=== PATIENT | male | born 1960 | race Caucasian/White ===

== ENCOUNTER → 2017-09-30 | Outpatient (CLI) | payer OTHER ==
[~2017-09-30] MED LIST: FOCUS FACTOR PO; HYDROCODON-ACE1 EA12 PO; NIACIN500 M2 PO; Z.0.BYSTOLIC5 MG PO; Z.0.CITALOPRAM HBR20 PO; Z.0.NEXIUM40 MG PO; Z.0.TAMSULOSIN HCL0. PO; Z.0.TERBINAFINE HC25 PO; [UNRECOGNIZED DRUG - OTHER] PO
--- NOTE | 2017-09-30 18:03 | Diagnostic Imaging Report ---
PROCEDURE:US RETROPERITONEAL ( KIDNEY ). COMPARISON:MR, MRI SPINE LUMBAR WO, 07/05/2016, 10:00. Patients [facility], CT, CT ABDOMEN/PELVIS WOW, 10/10/2013, 11:45. Patients [facility], US, US ABDOMEN COMPLETE, 11/29/2014, 18:23. INDICATIONS:HEMATURIA TECHNIQUE: Lentz-scale and color sonographic images of the bilateral kidneys and bladder where obtained in transverse and longitudinal planes. FINDINGS: RIGHT KIDNEY: 12.5 cm, cortex 1.9 cm Cysts: 2.5 x 2.1 x 1.6 cm partially exophytic hypoechoic lesion in the superior pole. Solid masses: None Stones: None Hydronephrosis: None Echogenicity: Normal LEFT KIDNEY: 12.7 cm, cortex 2.2 cm Cysts: None Solid masses: None Stones: None Hydronephrosis: None Echogenicity: Normal Bladder: No focal lesions. Bilateral ureteral jets are identified. Prostate: 3.7 x 2.3 x 4.4 cm (estimated volume 19.4 mL). CONCLUSION: 1. Normal bilateral renal size and echogenicity. No hydronephrosis or stones. 2. 2.5 cm partially exophytic hypoechoic lesion in the superior pole, which was not seen on prior abdominal ultrasound or CT abdomen and pelvis, and does not have features of simple cyst. This lesion remains indeterminate and can be further assessed with CT abdomen and pelvis renal mass protocol.. Neto Reina M.D. Dictated by: Neto Reina M.D. on 09/30/2017 at 18:11 Electronically approved by: Neto Reina M.D. on 09/30/2017 at 18:11
--- NOTE | 2017-09-30 18:04 | Diagnostic Imaging Report ---
PROCEDURE:X-RAY ABDOMEN - KUB COMPARISON:[facility], CT, CT ABDOMEN/PELVIS WOW, 10/10/2013, 11:45. INDICATIONS:ASYMPTOMATIC MICROSCOPIC HEMATURIA FINDINGS: There is a non-obstructed bowel-gas pattern. There are no calcifications projected over the renal shadows, expected course of the ureters or bladder. There are no acute osseous abnormalities. CONCLUSION: No calcifications project over the genitourinary system. Neto Reina M.D. Dictated by: Neto Reina M.D. on 09/30/2017 at 18:12 Electronically approved by: Neto Reina M.D. on 09/30/2017 at 18:12
== END ==
LOC: US 13:52
PROVIDERS: ATTEND Urology
DX: R31.9 Hematuria, unspecified (principal)
CPT/HCPCS: 74000; 76770

== ENCOUNTER → 2017-11-14 | Outpatient (CLI) | payer OTHER ==
[~2017-11-14] MED LIST changes: +IOPAMIDOL 370 MG/ML 200 ML INFUS..BTL INJ ONE; +SODIUM CHLORIDE 0.9% 50ML 50 ML ONE; +SUCRALFATE1 GM PO; +TIZANIDINE HCL4 MG PO
[2017-11-14 13:23] LABS: BLOOD UREA NITROGEN 18 mg/dL (7-26); BUN/CREATININE RATIO 17 (6-25); CREATININE, SERUM 1.03 mg/dL (0.72-1.25); EST GLOMERULAR FILTRATION RATE > 60 ML/MIN (60-)
--- NOTE | 2017-11-14 14:51 | Diagnostic Imaging Report ---
PROCEDURE: CT ABDOMEN \T\ PELVIS W/WO CONTRAST TECHNIQUE: The abdomen and pelvis were scanned utilizing a multidetector helical scanner from the diaphragm to the lesser trochanter before and after the IV administration of 100 cc of Isovue 370 and the oral administration of water. Coronal and sagittal multiplanar reformations were obtained. CT renal mass protocol was performed. 3D volume renderings were created using a standalone workstation. DLP: 2046.5 mGy-cm. COMPARISON: Abdominal CT 10/10/2013, Renal ultrasound 09/30/2017 INDICATIONS: ABNORMAL ULTRASOUND, ASYMPTOMATIC MICROSCOPIC HEMATURIA FINDINGS: LOWER THORAX: Right basilar atelectasis. HEPATOBILIARY: Diffuse hypoattenuation of the liver, suggestive steatosis. Calcified granuloma adjacent to the gallbladder. No focal hepatic lesions. No biliary ductal dilatation. SPLEEN: No splenomegaly. PANCREAS: No focal masses or ductal dilatation. ADRENALS: No adrenal nodules. KIDNEYS/URETERS: No hydronephrosis, stones, or solid mass lesions. No CT correlate to the 2.5 cm abnormality noted on ultrasound 09/30/2017 in the right kidney. A few tiny hypodensities in both kidneys measure up to 0.4 cm (coronal venous image 58) in the right kidney and 0.4 cm (coronal venous image 68) in the left kidney, too small to characterize but probably cysts. No filling defects in the urinary collecting systems. The mid right ureter is not well opacified likely secondary to peristalsis, but otherwise with unremarkable unopacified appearance. PELVIC ORGANS/BLADDER: Urinary bladder is minimally distended on delayed phase without filling defect. PERITONEUM / RETROPERITONEUM: No free air or fluid. LYMPH NODES: No lymphadenopathy. VESSELS: Unremarkable. GI TRACT: No distention or wall thickening. Colonic diverticula of the right and left colon without evidence of diverticulitis. Appendix is normal. BONES AND SOFT TISSUES: A changes of the spine, worse at L5-S1. No acute or aggressive osseous lesions. IMPRESSION: 1. No renal masses identified. No CT correlate to the abnormality on ultrasound 09/30/2017. 2. Colonic diverticulosis. Dictated by: Bogdan Maldonado M.D. on 11/14/2017 at 14:51 Electronically approved by: Bogdan Maldonado M.D. on 11/14/2017 at 14:51
== END ==
LOC: CT 12:26
PROVIDERS: ATTEND Urology
DX: R31.9 Hematuria, unspecified (principal)
CPT/HCPCS: 36415; 74178; 82565; 84520; Q9967

== ENCOUNTER → 2018-08-08 | Outpatient (CLI) | payer OTHER ==
[~2018-08-08] MED LIST changes: -IOPAMIDOL 370 MG/ML 200 ML INFUS..BTL INJ ONE; -SODIUM CHLORIDE 0.9% 50ML 50 ML ONE
--- NOTE | 2018-08-08 17:29 | Diagnostic Imaging Report ---
EXAM: CT Abdomen WITHOUT contrast INDICATION: Cirrhosis COMPARISON: 05/09/2018 CT abdomen, no report available TECHNIQUE: Abdomen was scanned utilizing a multidetector helical scanner without the use of IV contrast. Coronal and sagittal reformations were obtained. IV CONTRAST: None COMPLICATIONS: None RADIATION DOSE: Total DLP: 489 mGy*cm Estimated effective dose: (DLP x 0.015 x size factor) mSv CTDIvol has been reviewed. It is below the limits set by the Radiation Protocol Committee (RPC). Appropriate CT dose reduction techniques were utilized. FINDINGS: Abdomen: Lung Bases: No acute findings. Solid Organs: No steatosis or distinct nodularity of the liver identified. AP diameter of spleen 136 mm. Main portal vein 20 mm coronal image 55. Otherwise, Nonenhanced images of the adrenal glands, kidneys, spleen, splenule, and pancreas are unremarkable. Upper GI Tract: No small bowel obstructive changes. Vascularity: No aortic aneurysm. Lymph Nodes: No suspicious adenopathy. Other: No free fluid or free air. Bones: Degenerative changes spine, particularly L5-S1. IMPRESSION: 1. Within limitations of nonenhanced exam, no distinct cirrhotic morphology of the liver. 2. Borderline splenomegaly 136 mm. Prominent portal vein 20 mm. Findings can be seen in the setting of portal hypertension. Clinical and laboratory correlation recommended. Doppler evaluation could be obtained if indicated. Signed by: Dr. Felix Flaherty MD on 08/08/2018 5:26 PM
== END ==
LOC: CT 11:37
PROVIDERS: ATTEND Internal Medicine Medical Oncology
DX: K74.60 Unspecified cirrhosis of liver (principal)
CPT/HCPCS: 74150

== ENCOUNTER 2018-11-06 00:22 | Emergency (ER) | payer OTHER ==
[~2018-11-06] VITALS: Ht 175.3 cm; Wt 103.4 kg
--- OUTSIDE RECORDS SUMMARY | 2018-11-06 00:26 | XMS REPORT | Continuity of Care Document ---
Author Author [facility] Interface Address Unknown Phone Unavailable Problems Problem Status Onset Date Classification Date Reported Comments Source DX: R06.02=SHORTNESS OF BREATH Active 06/18/2016 [facility] UNK Active 05/03/2016 [facility] Depression Resolved Problem 05/15/2016 [facility] GERD (<span ID="[id number]">Confirmed</span>) Active Problem 05/15/2016 [facility] Hypercholesteremia Active Problem 05/15/2016 [facility] Hypertension Active Problem 05/15/2016 [facility] Sleep apnea Active Problem 05/15/2016 [facility] Medications Medication Details Route Status Patient Instructions Ordering Provider Order Date Source tamsulosin 0.4 mg, Route: PO, Drug form: CAP, Daily, Dosing Weight 113.182, kg, Start date: 05/13/16 9:00:00 CDT, Duration: 30 day, Stop date: 06/11/16 9:00:00 CDT No Longer Active 05/13/2016 [facility] Bystolic 5 mg, Route: PO, Drug form: TAB, Daily, Dosing Weight 113.182, kg, Start date: 05/13/16 9:00:00 CDT, Duration: 30 day, Stop date: 06/11/16 9:00:00 CDT No Longer Active 05/13/2016 [facility] Esomeprazole 40 mg, Route: PO, Drug form: ECCAP, Daily, Dosing Weight 113.182, kg, Start date: 05/13/16 9:00:00 CDT, Duration: 30 day, Stop date: 06/11/16 9:00:00 CDT No Longer Active 05/13/2016 [facility] Citalopram 20 mg, Route: PO, Drug form: TAB, Daily, Dosing Weight 113.182, kg, Start date: 05/13/16 9:00:00 CDT, Duration: 30 day, Stop date: 06/11/16 9:00:00 CDT No Longer Active 05/13/2016 [facility] tizanidine 4 mg, Route: PO, Drug form: CAP, TID, Dosing Weight 113.182, kg, Start date: 05/12/16 13:00:00 CDT, Duration: 30 day, Stop date: 06/11/16 9:00:00 CDT Inactive 05/12/2016 [facility] Sodium Chloride 0.154 MEQ/ML Injectable Solution 1,000 mL, Rate: 25 ml/hr, Infuse over: 40 hr, Route: IV, Dosing Weight 113.182 kg, Total Volume: 1,000, Start date: 05/12/16 9:12:00 CDT, Duration: 30 day, Stop date: 06/11/16 9:11:00 CDT Inactive 05/12/2016 [facility] nebivolol 5 MG Oral Tablet [Bystolic] 5 mg=1 tab, PO, Daily, # 30 tab, 0 Refill(s) On Hold 05/07/2016 [facility] Acetaminophen 325 MG / Hydrocodone Bitartrate 7.5 MG Oral Tablet 1 tab, PO, Bedtime, PRN for pain, # 42 tab, 0 Refill(s) Active 05/07/2016 [facility] citalopram 20 mg oral tablet 20 mg=1 tab, PO, Daily, 0 Refill(s) Active 05/07/2016 [facility] Fenofibrate PO, Daily, 0 Refill(s) On Hold 05/07/2016 [facility] tamsulosin 0.4 mg oral capsule 0.4 mg=1 cap, PO, Daily, # 30 cap, 0 Refill(s) On Hold 05/07/2016 [facility] tizanidine 4 mg oral capsule 4 mg=1 cap, PO, TID, # 90 cap, 0 Refill(s) On Hold 05/07/2016 [facility] Esomeprazole 40 MG Enteric Coated Capsule 40 mg=1 cap, PO, Daily, # 30 cap, 0 Refill(s) Active 05/07/2016 [facility] Allergies, Adverse Reactions, Alerts Substance Category Reaction Severity Reaction type Status Date Reported Comments Source Immunizations Immunization Date Given Site Status Last Updated Comments Source Results Order Name Results Value Reference Range Date Interpretation Comments Source Vital Signs Vital Sign Value Date Comments Source Systolic (mm Hg) 99 05/12/2016 [facility] Diastolic (mm Hg) 73 05/12/2016 [facility] Respitory Rate 10 05/12/2016 [facility] Systolic (mm Hg) 117 05/12/2016 [facility] Diastolic (mm Hg) 73 05/12/2016 [facility] Respitory Rate 15 05/12/2016 [facility] Systolic (mm Hg) 105 05/12/2016 [facility] Diastolic (mm Hg) 67 05/12/2016 [facility] Respitory Rate 13 05/12/2016 [facility] Temperature Oral (F) 99 F 05/07/2016 [facility] Heart Rate 83 05/07/2016 [facility] BMI Calculated 35.8 05/07/2016 [facility] Height 177.8 cm 05/07/2016 [facility] Weight 113.182 05/07/2016 [facility] Encounters Location Location Details Encounter Type Encounter Number Reason For Visit Attending Provider ADM Date DC Date Status Source [facility] Bedded Outpatient [id number] Jose Guadalupe Kelly 05/12/2016 05/12/2016 [facility] Procedures Procedure Code Date Perfomer Comments Source Foot joint operations [id number] [facility] Neck procedure [id number] [facility] Rotator cuff repair [id number] [facility] Shoulder joint operations [id number] [facility]
--- NOTE | 2018-11-06 01:33 | Diagnostic Imaging Report ---
NECK SOFT TISSUE HISTORY: Anterior neck numbness and pain. COMPARISON: None available. FINDINGS: Bones: Limited sensitivity for detection of subtle fractures and ligamentous abnormalities given technique. On the lateral view, the cervical spine is visualized from the skull base to C6. No acute displaced fracture involving the visualized cervical spine. C5-C7 anterior fusion with plate and screw construct. Mild disc space narrowing at C3-C4 and C4-C5. Multilevel facet hypertrophy. Soft tissues: The soft tissues appear unremarkable. Trachea midline. No prevertebral soft tissue swelling. IMPRESSION: No acute radiographic abnormality. Signed by: DR. Bogdan Maldonado MD on 11/06/2018 1:30 AM
[2018-11-06] MEDS ORDERED: KETOROLAC TROMETHAMINE 60 MG/2 ML VIAL IM ONE (02:15)
== END 2018-11-06 02:43 | disposition home or self-care (01) ==
LOC: ER 00:22
DX: R68.84 Jaw pain (principal); M54.2 Cervicalgia; S16.1XXA Strain of muscle, fascia and tendon at neck level, initial encounter; Y93.54 Activity, bowling; Y92.39 Other specified sports and athletic area as the place of occurrence of the external cause
CPT/HCPCS: 70360; 99283; J1885

== ENCOUNTER → 2019-01-19 | Outpatient (CLI) | payer OTHER | LOC: CARD 09:58 | PROVIDERS: ATTEND Psychiatry & Neurology Clinical Neurophysiology | DX: I65.29 Occlusion and stenosis of unspecified carotid artery (principal) | CPT/HCPCS: 93880 ==

== ENCOUNTER → 2019-04-26 | Outpatient (CLI) | payer OTHER | LOC: CARD 13:43 | PROVIDERS: ATTEND Psychiatry & Neurology Clinical Neurophysiology | DX: Z13.6 Encounter for screening for cardiovascular disorders (principal); M54.2 Cervicalgia; M54.12 Radiculopathy, cervical region; R20.2 Paresthesia of skin; M35.00 Sjogren syndrome, unspecified | CPT/HCPCS: 93880 ==

== ENCOUNTER → 2019-06-29 | Outpatient (CLI) | payer OTHER ==
--- NOTE | 2019-06-29 10:13 | Diagnostic Imaging Report ---
EXAM: Renal Ultrasound INDICATION: ^[id number] ^[id number] ^CHRONIC KIDNEY DZ COMPARISON: CT abdomen pelvis of 08/08/2018 TECHNIQUE: Transverse and longitudinal images of the kidneys and bladder were obtained. FINDINGS: Right Kidney: Length: 13.4 cm Appearance: Normal echogenicity. Collecting system: No hydronephrosis Stones: None Cyst/Mass: None Left Kidney: Length: 12.8 cm Appearance: Normal echogenicity. Collecting system: No hydronephrosis Stones: None Cyst/Mass: 7 x 5 x 5 mm anechoic simple cyst at the lateral midpole. Bladder: No mass or calculi. Bilateral ureteral jets visualized. Prevoid volume estimate of 58.1 cc. Prostate volume estimate of 14.4 cc. IMPRESSION: No renal calculi or hydronephrosis. Signed by: Shayne Harding MD on 06/29/2019 10:10 AM
--- NOTE | 2019-06-29 10:14 | Diagnostic Imaging Report ---
Right hand MRI without contrast. History: Hand pain. Trauma. Decreased range of motion. Comparison: None Technique: Multiplanar multisequence MRI of the head without contrast Findings: No acute fracture, subluxation or avascular process. No osseous erosion or focal bone marrow edema. Mild scattered degenerative changes. No ligamentous or tendon tear. The visualized neurovascular bundles are intact. The visualized muscles are normal in size, signal intensity and morphology. Mild soft tissue edema about the third and fourth fingers. No focal fluid collection is seen. Impression: Mild soft tissue edema about the third and fourth fingers. No focal fluid collection is seen. Signed by: Dr. Gerson Cunningham M.D. on 06/29/2019 10:10 AM
== END ==
LOC: US 07:43
PROVIDERS: ATTEND Urology
DX: M79.641 Pain in right hand (principal); N18.9 Chronic kidney disease, unspecified
CPT/HCPCS: 76770

== ENCOUNTER → 2020-03-20 | Day surgery (SDC) | payer OTHER ==
[~2020-03-20] MED LIST changes: +BRAIN MIGHT-DH1 EACH PO; +HYDROCHLOROTHIA25 MG PO; +LIDOCAINE HCL 2% LOCAL INJ 5 ML SDV VIAL INJ ONE; +MEGA D3 PO; +PANTOPRAZOLE 40 MG 10ML VIAL ONE; +PROPOFOL IV EMULSION 10 MG/ML 20 ML VIAL ONE; +TESTOSTERO100 MG/1 M INJ
[2020-03-20 12:40] VITALS: BP 123/88
--- NOTE | 2020-03-20 12:59 | Operative Report ---
DATE OF PROCEDURE: 03/20/2020 SURGEON: Nehemias Jesus MD PROCEDURES: EGD with polypectomy biopsies, and pyloric channel dilatation. INDICATIONS FOR EGD: Acid reflux, upper abdominal pain, bloating. MEDICATIONS: The patient was done under MAC, please see anesthesiologist's note. PROCEDURE IN DETAIL: With the patient in left lateral decubitus position, the flexible fiberoptic Olympus gastroscope was introduced into the esophagus under direct visualization without any difficulty. There was some patchy erythema noted in distal esophagus. The scope was then advanced with ease into the stomach, traversing a small hiatal hernia. Mucosa overlying the antrum and the body revealed some patchy intense erythema in the antrum and moderate edema, and biopsies were obtained, and sent to stain for H. pylori. There was a prepyloric fold almost totally occluding the pyloric channel and the pyloric channel was then dilated to size 20 mm per TTS balloon dilators, and the fold was partially resected per snare electrocautery. The scope was then advanced with ease into the second portion of the duodenum. Biopsies were obtained from the proximal second portion as well as from the duodenal bulb to rule out sprue. The scope was then withdrawn back into the stomach and retroflexed, mucosa overlying the fundus and cardia appeared to be within normal limits. The scope was then straightened out, it was subsequently withdrawn. The patient tolerated the procedure well. IMPRESSION: 1. Distal esophagitis. 2. Small hiatal hernia. 3. Gastritis, biopsied, biopsies sent to stain for H. pylori. 4. Prepyloric fold obstructing pyloric channel, partially resected per snare electrocautery and pyloric channel dilated to size 20 mm per TTS balloon dilators. 5. Rule out sprue. PLAN: 1. Follow up histology. 2. Increase Nexium to 40 mg one p.o. a.c. b.i.d. Nehemias Jesus MD [facility] /[id number] cc: Sathish Alanis DO
== END | disposition home or self-care (01) ==
LOC: OR 09:35
PROVIDERS: ATTEND Internal Medicine Gastroenterology
DX: K29.60 Other gastritis without bleeding (principal); K21.9 Gastro-esophageal reflux disease without esophagitis; K20.9 Esophagitis, unspecified; K44.9 Diaphragmatic hernia without obstruction or gangrene; K31.89 Other diseases of stomach and duodenum; G47.33 Obstructive sleep apnea (adult) (pediatric); I10 Essential (primary) hypertension; R89.9 Unspecified abnormal finding in specimens from other organs, systems and tissues; Z01.810 Encounter for preprocedural cardiovascular examination; Z01.812 Encounter for preprocedural laboratory examination; Z11.59 Encounter for screening for other viral diseases; Z86.010 Personal history of colon polyps
CPT/HCPCS: 43239; 43245; 43251; 87635; 93005; C9113; J2001; J2704

== ENCOUNTER 2022-01-15 07:57 | Inpatient (IN) | payer BC, OTHER ==
[~2022-01-15] VITALS: Ht 175.3 cm; Wt 111.1 kg
[~2022-01-15 07:57] MED LIST changes: -LIDOCAINE HCL 2% LOCAL INJ 5 ML SDV VIAL INJ ONE; -PANTOPRAZOLE 40 MG 10ML VIAL ONE; -PROPOFOL IV EMULSION 10 MG/ML 20 ML VIAL ONE
[2022-01-15 08:00] VITALS: BP 101/71
[2022-01-15] MEDS ORDERED: Morphine 4mg Syringe 4 MG/ML INJ IV STA (08:10)
[2022-01-15] MEDS ORDERED: ONDANSETRON HCL INJ 2MG/ML 2ML 2 MG/ML VIAL IV STA (08:10)
[2022-01-15] MEDS ORDERED: SODIUM CHLORIDE 0.9% 1000ML 1,000 ML IV STA (08:10)
[2022-01-15 08:31] LABS: BASOPHILS % 0.3 % (0.0-1.0); EOSINOPHILS # (AUTO) 0.1 (0.0-0.4); HEMATOCRIT 43.3 % (38.2-49.6); HEMOGLOBIN 14.7 g/dL (14.0-18.0); LYMPHOCYTES # (AUTO) 2.7 (1.0-3.2); LYMPHOCYTES % 26.5 % (18.0-39.1); MEAN CORPUSCULAR HEMOGLOBIN 28.3 pg (28-32); MEAN CORPUSCULAR HGB CONC 33.9 g/dL (31-35); MEAN CORPUSCULAR VOLUME 83.4 fL (81-99); MONOCYTES # (AUTO) 0.8 (0.2-0.8); MONOCYTES % 7.5 % (4.4-11.3); NEUTROPHILS # (AUTO) 6.5 (2.1-6.9); NEUTROPHILS % 64.5 % (38.7-80.0); PLATELET COUNT 123 x10e3/uL (140-360); RED BLOOD COUNT 5.19 x10e6/uL (4.3-5.7)
[2022-01-15] MEDS ORDERED: DIATRIZOATE MEGL/DIATRIZOA SOD 30 ML BTL PO ONE (08:35)
[2022-01-15 08:47] LABS: INR 0.86; PARTIAL THROMBOPLASTIN TIME 31.8 seconds (23.8-35.5); PROTHROMBIN TIME 12.5 seconds (11.9-14.5)
[2022-01-15 08:57] LABS: ALANINE AMINOTRANSFERASE 26 IU/L (0-55); ALBUMIN 4.2 g/dL (3.5-5.0); ALBUMIN/GLOBULIN RATIO 1.1 (0.8-2.0); ALKALINE PHOSPHATASE 40 IU/L (40-150); ANION GAP 14.8 mmol/L (8-16); BLOOD UREA NITROGEN 19 mg/dL (7-26); BUN/CREATININE RATIO 16 (6-25); CALCIUM 9.7 mg/dL (8.4-10.2); CARBON DIOXIDE 28 mmol/L (22-29); CHLORIDE 99 mmol/L (98-107); CREATINE KINASE 194 IU/L (30-200); CREATININE, SERUM 1.18 mg/dL (0.72-1.25); EST GLOMERULAR FILTRATION RATE 63 ML/MIN (60-); GLUCOSE 120 mg/dL (74-118); LIPASE 28 U/L (8-78); MAGNESIUM 2.1 MG/DL (1.3-2.1); POTASSIUM 3.8 mmol/L (3.5-5.1); SODIUM 138 mmol/L (136-145)
[2022-01-15 09:17] LABS: CLARITY,URINE CLEAR (CLEAR); COLOR,URINE YELLOW (YELLOW); KETONES,URINE NEGATIVE (NEGATIVE); LEUKOCYTE ESTERASE ,URINE NEGATIVE (NEGATIVE); NITRITE,URINE NEGATIVE (NEGATIVE); PROTEIN,URINE DIPSTICK NEGATIVE (NEGATIVE); URINE UROBILINOGEN 0.2 mg/dL (0.2 - 1)
[2022-01-15 09:25] LABS: BACTERIA,URINE RARE /HPF; EPITHELIAL CELLS,URINE RARE /LPF; RBC,URINE 0-5 /HPF (0-5); WBC,URINE (MAN) 0-5 /HPF (0-5)
[2022-01-15] MEDS ORDERED: HYDROMORPHONE 1MG/1ML INJ IV PRN (10:45)
[2022-01-15] MEDS: METRONIDAZOLE 500MG/NS 100ML 100 ML IV SCH ×2 (11:00→18:15)
[2022-01-15] MEDS: SODIUM CHLORIDE 0.9% 1000ML 1,000 ML IV SCH ×2 (11:01→22:21)
[2022-01-15] MEDS ORDERED: IOPAMIDOL 370 MG/ML 100 ML INFUS..BTL INJ ONE (11:08)
[2022-01-15 13:11] VITALS: BP 101/71
[2022-01-15] MEDS ORDERED: TIZANIDINE HCL 4 MG TAB PO PRN (14:45)
[2022-01-15] MEDS ORDERED: NON-FORMULARY MEDICATION (Esomeprazole Mag Trihydrate (Nexium) 40 MG) PO SCH (14:45)
[2022-01-15] MEDS: HYDROMORPHONE 1MG/1ML INJ IV PRN ×2 (15:08→22:24)
[2022-01-15 15:29] VITALS: BP 109/80
[2022-01-15] MEDS: SUCRALFATE 1 GM TAB PO SCH (18:15)
[2022-01-15 20:00] VITALS: BP 124/89
[2022-01-15] MEDS ORDERED: NEBIVOLOL HCL 10 MG PO SCH (21:00)
[2022-01-15] MEDS: NEBIVOLOL 10 MG TAB PO SCH (22:22)
[2022-01-16] VITALS (8 sets, daily range): BP systolic 121–146; BP diastolic 77–92
[2022-01-16] MEDS: METRONIDAZOLE 500MG/NS 100ML 100 ML IV SCH ×5 (00:30→23:49)
[2022-01-16] MEDS: HYDROMORPHONE 1MG/1ML INJ IV PRN ×5 (01:42→21:30)
[2022-01-16] MEDS: SODIUM CHLORIDE 0.9% 1000ML 1,000 ML IV SCH ×3 (05:23→20:21)
[2022-01-16 06:50] LABS: BASOPHILS % 0.6 % (0.0-1.0); EOSINOPHILS # (AUTO) 0.1 (0.0-0.4); EOSINOPHILS % 1.4 % (0.0-6.0); HEMATOCRIT 40.1 % (38.2-49.6); HEMOGLOBIN 13.5 g/dL (14.0-18.0); LYMPHOCYTES # (AUTO) 2.5 (1.0-3.2); LYMPHOCYTES % 34.5 % (18.0-39.1); MEAN CORPUSCULAR HEMOGLOBIN 28.8 pg (28-32); MEAN CORPUSCULAR HGB CONC 33.7 g/dL (31-35); MEAN CORPUSCULAR VOLUME 85.7 fL (81-99); MONOCYTES # (AUTO) 0.6 (0.2-0.8); MONOCYTES % 7.9 % (4.4-11.3); NEUTROPHILS % 55.3 % (38.7-80.0); PLATELET COUNT 132 x10e3/uL (140-360); RED BLOOD COUNT 4.68 x10e6/uL (4.3-5.7); RED CELL DISTRIBUTION WIDTH 13.1 % (11.7-14.4)
[2022-01-16 07:30] LABS: ALBUMIN 3.8 g/dL (3.5-5.0); ALBUMIN/GLOBULIN RATIO 1.3 (0.8-2.0); CALCIUM 8.6 mg/dL (8.4-10.2); CREATININE, SERUM 1.05 mg/dL (0.72-1.25)
[2022-01-16] MEDS: SUCRALFATE 1 GM TAB PO SCH ×2 (08:47→15:59)
[2022-01-16] MEDS: TAMSULOSIN HCL 0.4 MG CAP PO SCH (08:48)
[2022-01-16] MEDS: HYDROCHLOROTHIAZIDE 25 MG TAB PO SCH (08:48)
[2022-01-16] MEDS: PANTOPRAZOLE SOD 40 MG TABEC PO SCH (08:48)
[2022-01-16] MEDS: HYDROCODONE/APAP 7.5MG-325MG 1 EA TAB PO PRN ×2 (12:14→18:13)
[2022-01-16] MEDS: ONDANSETRON HCL INJ 2MG/ML 2ML 2 MG/ML VIAL IV PRN ×2 (12:20→12:24)
[2022-01-16] MEDS: NEBIVOLOL 10 MG TAB PO SCH (20:20)
[2022-01-17] VITALS (8 sets, daily range): BP systolic 95–142; BP diastolic 63–90
[2022-01-17] MEDS: ONDANSETRON HCL INJ 2MG/ML 2ML 2 MG/ML VIAL IV PRN ×2 (01:19→08:03)
[2022-01-17] MEDS: SODIUM CHLORIDE 0.9% 1000ML 1,000 ML IV SCH ×3 (03:00→20:48)
[2022-01-17] MEDS: HYDROMORPHONE 1MG/1ML INJ IV PRN ×4 (03:58→21:44)
[2022-01-17] MEDS ORDERED: ACETAMINOPHEN 325 MG TAB PO PRN (04:30)
[2022-01-17] MEDS: METRONIDAZOLE 500MG/NS 100ML 100 ML IV SCH ×3 (05:43→18:00)
[2022-01-17] MEDS: SUCRALFATE 1 GM TAB PO SCH ×2 (07:30→16:30)
[2022-01-17] MEDS: PANTOPRAZOLE SOD 40 MG TABEC PO SCH (07:30)
[2022-01-17] MEDS: TAMSULOSIN HCL 0.4 MG CAP PO SCH (08:02)
[2022-01-17] MEDS: HYDROCHLOROTHIAZIDE 25 MG TAB PO SCH (08:02)
[2022-01-17] MEDS: LIDOCAINE 4% PATCH TP SCH (12:16)
[2022-01-17] MEDS: HYDROCODONE/APAP 7.5MG-325MG 1 EA TAB PO PRN ×2 (12:25→23:09)
[2022-01-17] MEDS: NEBIVOLOL 10 MG TAB PO SCH (20:50)
[2022-01-18] VITALS: BP 114/83
[2022-01-18] MEDS: HYDROMORPHONE 1MG/1ML INJ IV PRN ×2 (02:24→06:28)
[2022-01-18] MEDS: SODIUM CHLORIDE 0.9% 1000ML 1,000 ML IV SCH (03:00)
[2022-01-18 04:00] VITALS: BP 105/82
[2022-01-18] MEDS: METRONIDAZOLE 500MG/NS 100ML 100 ML IV SCH ×2 (05:59)
[2022-01-18 07:41] VITALS: BP 105/76
[2022-01-18 08:02] VITALS: BP 105/76
[2022-01-18] MEDS: SUCRALFATE 1 GM TAB PO SCH (08:30)
[2022-01-18] MEDS: PANTOPRAZOLE SOD 40 MG TABEC PO SCH (08:30)
[2022-01-18] MEDS: LIDOCAINE 4% PATCH TP SCH (09:11)
[2022-01-18] MEDS: TAMSULOSIN HCL 0.4 MG CAP PO SCH (09:12)
[2022-01-18] MEDS: HYDROCHLOROTHIAZIDE 25 MG TAB PO SCH (09:16)
== END 2022-01-18 10:59 | disposition home or self-care (01) | DRG 392 ==
LOC: ER 08:07 → ERHOLD 10:47 → MED/SURG3 11:41
DX: K57.32 Diverticulitis of large intestine without perforation or abscess without bleeding (principal); I10 Essential (primary) hypertension; K21.9 Gastro-esophageal reflux disease without esophagitis; E78.5 Hyperlipidemia, unspecified; N40.0 Benign prostatic hyperplasia without lower urinary tract symptoms; G89.4 Chronic pain syndrome; Z20.822 Contact with and (suspected) exposure to COVID-19
CPT/HCPCS: 36415; 71045; 74177; 80053; 81001; 82550; 82553; 83690; 83735; 84484; 85025; 85610; 85730; 87040; 87086; 93005; 96361; 99284; J1170; J2270; J2405; J2543; J7030; Q9967; U0002

== ENCOUNTER → 2023-07-15 | Day surgery (SDC) | payer OTHER ==
[~2023-07-15] MED LIST changes: +CITALOPRAM HBR20 MG PO; +CRESTOR10 MG PO; +ETOMIDATE 2 MG/ML 10 ML INJ IV ONE; +FENTANYL CITRATE/PF 100MCG/2 ML INJ ONE; +FERROUS FUMARA324 MG PO; +GLUCAGON FOR INJ 1 MG VIAL ONE; +GLYCOPYRROLATE INJ 0.2 MG/ML VIAL ONE; +HYOSCYAMINE SULFATE 0.5 MG/ML INJ ONE; +LACTATED RINGER'S 1,000 ML ONE; +METOCLOPRAMIDE HCL 10 MG/2ML VIAL ONE; +MIDAZOLAM HCL 2 MG/2 ML VIAL ONE; +PROPOFOL IV EMULSION 10 MG/ML 20 ML VIAL ONE; +PROPOFOL IV EMULSION 10 MG/ML 50 ML VIAL IV ONE; +PROTONIX20 MG PO; +TRICOR145 MG PO; +VITAMIN D31 ML; +[UNRECOGNIZED DRUG - OTHER]
[2023-07-15 15:15] VITALS: TEMP 99
[2023-07-15 15:45] VITALS: BP 135/87; PULSE 85; RESP 17; O2SAT 97
== END | disposition home or self-care (01) ==
LOC: OR 12:03
PROVIDERS: ATTEND Internal Medicine Gastroenterology
DX: K20.90 Esophagitis, unspecified without bleeding (principal); Z12.11 Encounter for screening for malignant neoplasm of colon; K44.9 Diaphragmatic hernia without obstruction or gangrene; K29.50 Unspecified chronic gastritis without bleeding; K31.7 Polyp of stomach and duodenum; K31.89 Other diseases of stomach and duodenum; D12.3 Benign neoplasm of transverse colon; K57.30 Diverticulosis of large intestine without perforation or abscess without bleeding; K64.8 Other hemorrhoids; I10 Essential (primary) hypertension; G47.33 Obstructive sleep apnea (adult) (pediatric); Z68.33 Body mass index [BMI] 33.0-33.9, adult; Z71.3 Dietary counseling and surveillance; Z01.810 Encounter for preprocedural cardiovascular examination; Z79.899 Other long term (current) drug therapy
CPT/HCPCS: 43239; 45380; 45385; 93005; C9113; J1610; J1980; J2250; J2704 ×2; J2765; J3010; J7121; 45378

== ENCOUNTER 2024-06-29 21:29 | Emergency (ER) | payer OTHER ==
[~2024-06-29] VITALS: Ht 175.3 cm; Wt 111.1 kg
[~2024-06-29 21:29] MED LIST changes: -ETOMIDATE 2 MG/ML 10 ML INJ IV ONE; -FENTANYL CITRATE/PF 100MCG/2 ML INJ ONE; -GLUCAGON FOR INJ 1 MG VIAL ONE; -GLYCOPYRROLATE INJ 0.2 MG/ML VIAL ONE; -HYOSCYAMINE SULFATE 0.5 MG/ML INJ ONE; -LACTATED RINGER'S 1,000 ML ONE; +MECLIZINE HCL12.5 MG PO; -METOCLOPRAMIDE HCL 10 MG/2ML VIAL ONE; -MIDAZOLAM HCL 2 MG/2 ML VIAL ONE; -PROPOFOL IV EMULSION 10 MG/ML 20 ML VIAL ONE; -PROPOFOL IV EMULSION 10 MG/ML 50 ML VIAL IV ONE
[2024-06-29 23:21] LABS: BASOPHILS % 0.2 % (0.0-1.0); EOSINOPHILS # (AUTO) 0.1 (0.0-0.4); EOSINOPHILS % 0.9 % (0.0-6.0); HEMATOCRIT 43.9 % (38.2-49.6); HEMOGLOBIN 14.3 g/dL (14.0-18.0); LYMPHOCYTES # (AUTO) 2.5 (1.0-3.2); LYMPHOCYTES % 26.3 % (18.0-39.1); MEAN CORPUSCULAR HEMOGLOBIN 28.7 pg (28-32); MEAN CORPUSCULAR HGB CONC 32.6 g/dL (31-35); MEAN CORPUSCULAR VOLUME 88.2 fL (81-99); MONOCYTES # (AUTO) 0.8 (0.2-0.8); MONOCYTES % 8.6 % (4.4-11.3); NEUTROPHILS # (AUTO) 6.1 (2.1-6.9); NEUTROPHILS % 63.7 % (38.7-80.0); PLATELET COUNT 110 x10e3/uL (140-360); RED BLOOD COUNT 4.98 x10e6/uL (4.3-5.7); RED CELL DISTRIBUTION WIDTH 12.5 % (11.7-14.4); WHITE BLOOD COUNT 9.52 x10e3/uL (4.8-10.8)
[2024-06-29 23:35] LABS: ALBUMIN 4.5 g/dL (3.5-5.0); ALBUMIN/GLOBULIN RATIO 1.5 (0.8-2.0); ANION GAP 14.8 mmol/L (8-16); BILIRUBIN,TOTAL 0.6 mg/dL (0.2-1.2); CALCIUM 10.1 mg/dL (8.4-10.2); CREATININE, SERUM 1.37 mg/dL (0.72-1.25); POTASSIUM 3.8 mmol/L (3.5-5.1); TOTAL PROTEIN 7.6 g/dL (6.5-8.1)
[2024-06-30] MEDS ORDERED: IOPAMIDOL 370 MG/ML 100 ML INFUS..BTL INJ ONE (00:12)
[2024-06-30] MEDS: ACETAMINOPHEN 325 MG TAB PO ONE (00:48)
[2024-06-30] MEDS: KETOROLAC TROMETHAMINE 30 MG/ML VIAL IV STA (00:48)
[2024-06-30] MEDS: ONDANSETRON HCL INJ 2MG/ML 2ML 2 MG/ML VIAL IV STA (00:48)
[2024-06-30 01:17] LABS: CLARITY,URINE CLEAR (CLEAR); COLOR,URINE YELLOW (YELLOW); LEUKOCYTE ESTERASE ,URINE NEGATIVE (NEGATIVE); PH,URINE 7 (5 - 7)
[2024-06-30 01:18] LABS: BILIRUBIN,URINE NEGATIVE (NEGATIVE); GLUCOSE, URINE NEGATIVE (NEGATIVE); KETONES,URINE NEGATIVE (NEGATIVE); NITRITE,URINE NEGATIVE (NEGATIVE); PROTEIN,URINE DIPSTICK NEGATIVE (NEGATIVE); URINE UROBILINOGEN 0.2 mg/dL (0.2 - 1)
[2024-06-30 01:35] LABS: BACTERIA,URINE FEW /HPF; RBC,URINE 0-5 /HPF (0-5); WBC,URINE (MAN) 0-5 /HPF (0-5)
[2024-06-30] MEDS ORDERED: CIPRO500 MG PO (02:11)
[2024-06-30] MEDS ORDERED: METRONIDAZOLE500 MG PO (02:11)
[2024-06-30] MEDS ORDERED: ULTRAM 50MG50 MG PO (02:11)
[2024-06-30] MEDS ORDERED: KETOROLAC TROME10 MG PO (02:11)
[2024-06-30] MEDS: Morphine 4mg INJECTION 4 MG/ML INJ IV ONE (02:23)
[2024-06-30 02:45] VITALS: PULSE 78; RESP 16; TEMP 98.5; O2SAT 94
== END 2024-06-30 02:54 | disposition home or self-care (01) ==
LOC: ER 06-30 00:10
DX: R50.9 Fever, unspecified (principal); K57.32 Diverticulitis of large intestine without perforation or abscess without bleeding; R10.32 Left lower quadrant pain; K76.0 Fatty (change of) liver, not elsewhere classified; I10 Essential (primary) hypertension; E78.5 Hyperlipidemia, unspecified; K21.9 Gastro-esophageal reflux disease without esophagitis; G47.30 Sleep apnea, unspecified
CPT/HCPCS: 36415; 74177; 80053; 81001; 85025; 99284; J1885; J2270; J2405; Q9967

== ENCOUNTER → 2024-10-19 | Outpatient (REF) | payer OTHER ==
[~2024-10-19] MED LIST changes: +CIPRO500 MG PO; +KETOROLAC TROME10 MG PO; +METRONIDAZOLE500 MG PO; +ULTRAM 50MG50 MG PO
== END ==
LOC: US 14:33
PROVIDERS: ATTEND Family Medicine
DX: R22.9 Localized swelling, mass and lump, unspecified (principal)
CPT/HCPCS: 76882

== ENCOUNTER → 2024-11-07 | Outpatient (REF) | payer OTHER | LOC: US 07:37 | PROVIDERS: ATTEND Family Medicine | DX: R06.01 Orthopnea (principal); J98.6 Disorders of diaphragm | CPT/HCPCS: 71250; 76700 ==

== ENCOUNTER → 2024-11-16 | Outpatient (REF) | payer OTHER | LOC: MRI 09:28 | PROVIDERS: ATTEND Family Medicine | DX: M25.552 Pain in left hip (principal); G89.29 Other chronic pain ==